=== PATIENT | male | born 1975 ===

== ENCOUNTER 2018-08-09 18:52 | Emergency (ER) | payer OTHER ==
[2018-08-09 19:02] VITALS: BP 114/76; PULSE 79; RESP 16; TEMP 98.5; O2SAT 98
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
== END 2018-08-09 20:29 | disposition home or self-care (01) ==
LOC: C.ER 18:52
DX: S46.912A Strain of unspecified muscle, fascia and tendon at shoulder and upper arm level, left arm, initial encounter (principal); R07.89 Other chest pain; V49.49XA Driver injured in collision with other motor vehicles in traffic accident, initial encounter; Y92.410 Unspecified street and highway as the place of occurrence of the external cause